=== PATIENT | female | born 1935 | race Caucasian/White ===

== ENCOUNTER 2016-06-13 09:16 | Emergency (ER) | payer MEDICARE ==
[~2016-06-13] VITALS: Ht 157.5 cm; Wt 55.9 kg
[~2016-06-13 09:16] MED LIST: AMLO-39 PO; ASPI-653 PO; ESTR10TA VG; MULT-1007 PO; PRA20 PO; calcium PO
[2016-06-13 09:20] VITALS: BP 170/88; PULSE 79; RESP 18; O2SAT 96
--- NOTE | 2016-06-13 09:30 | ED.REPORT ---
HPI-Abd Pain F 40 and Over Date of Service Jun 13, 2016 ED Provider: Bertin Fernandez MD 81 year old female with a history of diverticulitis and GERD presents to the ER accompanied by her complaining of six days of LLQ abdominal pain, now radiating medially and into her uterus. Associated symptoms include nausea, chills, and diaphoresis this morning. Patient denies dysuria, hematuria, fever, constipation, diarrhea, and hematochezia. She also reports that there is a "lump " in the left lower quadrant. History of similar RLQ pain in December 2015, at which time her primary care provider ordered an abdominal CT that came back with negative results. Nursing Notes Stated Complaint: ABDOMINAL PAIN Chief Complaint: Female Abdominal Pain Nursing Notes Reviewed: Yes Allergies: Coded Allergies: Sulfa (Sulfonamide Antibiotics) (Verified Allergy, Unknown, 08/15/13) Scheduled ([calcium ]) 1,500 MG PO TID AmLODIPine-Expunged Drug, Do Not Renew! (AmLODIPine-Expunged Drug, Do Not Renew! ) 5 Mg Tablet 10 MG PO QPM HOLD FOR SBP<[] OR HR<[] Aspirin-Expunged Drug, Do Not Renew! (Lo-Dose Aspirin-Expunged Drug, Do Not Renew!) 81 Mg Tablet. 81 MG PO DAILY Ciprofloxacin (Ciprofloxacin) 500 Mg Tablet 500 MG PO BID Estradiol-Expunged Drug, Do Not Renew! (Vagifem-Expunged Drug, Do Not Renew!) 10 Mcg Tablet 10 MCG VG 3XW Metronidazole (Flagyl) 500 Mg Tablet 500 MG PO Q8H Multivitamin (Multi-Vitamin Daily) 1 Each Tablet 1 EACH PO DAILY Pravastatin-Expunged Drug, Do Not Renew! (Pravachol-Expunged Drug, Do Not Renew! ) 20 Mg Tab 20 MG PO HS General Time Seen by MD: 09:27 Chief Complaint Abdominal pain Hx Obtained From: Patient Arrived By: Walk-in Sudden in Onset?: No Onset Occurred: 6 days ago Symptom Duration: Since onset Location: : LLQ Quality: Painful Severity: Current: Moderate Severity: Maximum: Moderate Associated with: Reports: Chills, Nausea, Denies: Chest pain, Diarrhea, Dysuria, Fever, Hematemesis, Hematochezia, Hematuria, Vomiting Similar Sx Previous: Yes Past Medical History Past Medical History Diverticulitis Reports: Cancer (Breast), GERD, Hypertension Past Surgical History Mastectomy Reports: Tonsillectomy Smoking History Unknown if Ever Smoker Social History Other Social History: Good social support, Ambulatory Status Independent Review of Systems Constitutional: Reports: Chills, Denies: Fever Respiratory: Denies: Non-productive cough, Shortness of breath Cardiovascular: Denies: Chest pain GI: Reports: Abdominal pain, Nausea, Denies: Bloody/tarry stool, Constipation, Diarrhea, Hematemesis, Hematochezia , Vomiting Female: Denies: Dysuria, Flank pain, Hematuria, Urinary frequency, Urinary urgency Complete sys rev & neg: except as marked. Physical Exam Vital Signs Vital Signs (First) Date Time Temp Pulse Resp B/P Pulse Ox O2 Delivery O2 Flow Rate FiO2 06/13/16 09:20 36.1 79 18 170/88 96 Room Air Initial VS: Reviewed Head / Eyes: Atraumatic, Normocephalic Neck: Supple, Non-tender, Full range of motion Extremities: Vascular intact, Neuro intact, No swelling, No tenderness Skin: Warm, Dry, No cyanosis Neurologic: Alert, Oriented, Nonfocal General/Constitutional: Awake, Alert, Well developed, Well nourished Respiratory / Chest: Breath sounds NL, Breath sounds = bilat, No respiratory distress, No rales, No rhonchi, No wheezing, No stridor Cardiovascular: Heart rate NL, Regular rhythm, Heart sounds NL, Peripheral circulation NL Abdomen: Soft, No guarding, No rebound, No distention, No palpable mass Back: Inspection NL, Non-tender, No CVA tenderness Interpretation & Diagnostics Lab Results Interpretation Result Diagram: 06/13/16 1020 06/13/16 1020 Test 06/13/16 10:20 White Blood Count 5.2th/mm3 (3.8-10.1) Red Blood Count 4.80mil/mm3 (3.90-5.20) Hemoglobin 14.4g/dL (12.0-15.6) Hematocrit 41.5% (35.0-46.0) Mean Corpuscular Volume 86.5fL (81-100) Mean Corpuscular Hemoglobin 30.0pg (27.0-35.0) Mean Corpuscular Hemoglobin Concent 34.7% (32.0-37.0) Red Cell Distribution Width 12.5% (12.3-15.4) Platelet Count 239bil/L (150-400) Neutrophils (%) (Auto) 66.1% (40-74) Lymphocytes (%) (Auto) 23.1% (14-46) Monocytes (%) (Auto) 7.9% (4-12) Eosinophils (%) (Auto) 1.9% (0-5) Basophils (%) (Auto) 0.6% (0-3) Urine Color Yellow (YELLOW) Urine Appearance Clear (CLEAR,HAZY) Urine pH 7.5 (5.0-8.0) Urine Specific Ismay 1.015 (1.003-1.035) Urine Protein Negativemg/dL (NEG,TRACE) Urine Glucose (UA) Negativemg/dL (NEGATIVE) Urine Ketones Negativemg/dL (NEGATIVE) Urine Occult Blood Large (NEGATIVE) Urine Nitrite Negative (NEGATIVE) Urine Bilirubin Negative (NEGATIVE) Urine Urobilinogen Normalmg/dL (NORMAL) Urine Leukocyte Esterase Negative (NEGATIVE) Urine RBC 11-50/hpf (0-2) Urine WBC 0-5/hpf (0-5) Urine Epithelial Cells Few/hpf (NONE-MOD) Urine Crystals None seen (NONE SEEN) Urine Bacteria Few/hpf (NONE-FEW) Urine Hyaline Casts None/lpf (NONE) Urine Granular Casts None seen (NONE SEEN) Urine Waxy Casts None seen (NONE SEEN) Urine Red Blood Cell Casts None seen (NONE SEEN) Urine White Blood Cell Casts None seen (NONE SEEN) Urine Mucus None seen (None Seen) Urine Trichomonas None seen (NONE SEEN) Urine Yeast None (NONE SEEN) Urinalysis Comment None Urine Culture Reflexed Not indicated Sodium Level 135mEq/L (134-144) Potassium Level 3.4mEq/L (3.5-5.2) Chloride Level 92mEq/L (97-108) Carbon Dioxide Level 27mmol/L (18-29) Blood Urea Nitrogen 17mg/dL (8-27) Creatinine 0.72mg/dL (0.57-1.00) Estimat Glomerular Filtration Rate 112mL/min (>59) Glucose Level 115mg/dL (60-99) Calcium Level 10.2mg/dL (8.5-10.1) Magnesium Level 1.7mg/dL (1.6-2.6) Total Bilirubin 0.7mg/dL (0.0-1.2) Aspartate Amino Transf (AST/SGOT) 24U/L (0-50) Alanine Aminotransferase (ALT/SGPT) 17U/L (0-32) Alkaline Phosphatase 65U/L (25-165) Total Protein 7.6g/dL (6.4-8.4) Albumin 4.7g/dL (3.4-5.0) Lipase 28U/L (13-60) Hold Mata Top Tube Received (Received) CT Abd / Pelvis Interpretation IMPRESSION: 1. Extensive colonic diverticulosis without convincing findings of diverticulitis. However mild wall thickening of the sigmoid colon is present without surrounding inflammation. This could potentially represent very early diverticulitis, in the correct clinical setting. 2. No abscess or bowel obstruction. 3. Intrahepatic and extrahepatic biliary dilatation is similar to prior exams. If the patient's liver function tests are persistently elevated and/or increasing, please consider MRCP for further evaluation. 4. Prominence of the urinary bladder wall may be related to incomplete distention. Please correlate clinically to exclude cystitis. Additional findings: -Small hiatal hernia. -Duodenal diverticula. -Osteopenia and degenerative changes of the imaged spine and pelvis without acute fracture. -Coronary and aortic atherosclerosis. Dictated by: Ferdinand Rowe M.D. on 06/13/2016 at 10:48 Approved by: Ferdinand Rowe M.D. on 06/13/2016 at 10:58 Study type: Abdominal CT IV contrast, Abdom CT oral contrast Interpretation / Wet Read by: Interpret - Radiologist Re-Eval/Medical Decision Med Decision/Clinical Course 81-year-old female history of diverticulitis presenting complaining of lower quadrant pain. Vital signs stable. Labs are stable. CT shows possible early diverticulitis with no perforation or abscess. We will treat with Cipro Flagyl 14 days. Recommend follow-up with primary doctor 1-2 days. Return precautions given regarding any new or worsening abdominal pain, fevers chills, nausea vomiting, any other new or worsening symptoms. Source of Hx: Old records Re-Evaluation/Progress : Time of Eval: 12:20 Re-Evaluation/Progress Note: Discussed lab and imaging results and plan to discharge. Patient is amenable to the plan. Return precautions given. All other questions addressed. Counseled Regarding: Diagnosis, Lab results, Need for follow-up, When/why to return to ED Discharge & Departure Primary Impression: Diverticulitis Disposition: Home Discharge Condition All VS Reviewed: Yes Condition: Stable Patient Instructions: Diverticulitis (DC) Additional Instructions: Your CT revealed possible early diverticulitis. Take the prescribed Ciprofloxacin and Flagyl as directed. It is important that you complete the entire course of both of these antibiotic medications, even if you start to feel better. Call your primary care doctor to arrange a follow-up appointment for 1-2 days from now. Return to the ER if you develop new or worsening pain, fever, chills, nausea, vomiting, blood in your stool or vomit, or any other concerning symptoms. Referrals: Jordan Palacios MD (PCP) Jose Attestation Portions of this note were transcribed by Lm Barney. I, Dr. Fernandez, personally performed the history, physical exam and medical decision-making; I reviewed and confirmed the accuracy of the information in the transcribed note. Signed by: Jose Arndt, 06/13/2016 at 12:22 copies to: Jordan Palacios MD, Ben M MD Jun 13, 2016 09:30 LM BARNEY Jun 13, 2016 09:34
[2016-06-13] MEDS ORDERED: Ondansetron 2 mg/mL 2 mL Inj IVPUSH PRN (10:05)
[2016-06-13 10:24] LABS: BASOPHILS % (AUTO) 0.6 % (0-3); EOSINOPHILS % (AUTO) 1.9 % (0-5); MONOCYTES % (AUTO) 7.9 % (4-12); Mean Corpuscular Volume 86.5 fL (81-100); NEUTROPHILS % (AUTO) 66.1 % (40-74); Platelet Count 239 bil/L (150-400)
[2016-06-13 10:41] LABS: APPEARANCE,URINE CLEAR (CLEAR,HAZY); COLOR,URINE YELLOW (YELLOW); OCCULT BLOOD,URINE LARGE (NEGATIVE); PH,URINE 7.5 (5.0-8.0); UROBILINOGEN,URINE NORMAL (NORMAL)
[2016-06-13 11:00] LABS: Magnesium 1.7 mg/dL (1.6-2.6)
--- NOTE | 2016-06-13 12:00 | DRSVH ---
PROCEDURE: CT ABDOMEN AND PELVIS WITH CONTRAST ([id number]) INDICATIONS: LLQ pain, L flank pain h/o diverticulitis TECHNIQUE: After the administration of oral and intravenous contrast, 5 mm thick sections acquired from the diap hragms to the symphysis. 5 mm thick coronal and sagittal reformats were performed. For radiation do se reduction, the following was used: automated exposure control, adjustment of mA and/or kV accordi ng to patient size. COMPARISON: [facility], CT, CT ABD PELVIS W CON, 01/12/2016, 15:09. [facility], CT, ABD/PELVIS W&WO CON (PNL), 09/09/2008, 10:20. FINDINGS: Image quality: Diagnostic. ABDOMEN: Lung bases: Included lung bases are clear. The heart is normal in size without a pericardial effusio n. Postoperative changes related to a right mastectomy are present. Coronary artery atherosclerosis is noted. Solid organs: The liver is normal in size. There phrygian cap of the gallbladder is incidentally not ed. There is mild intrahepatic and moderate extrahepatic biliary dilatation. The common bile duct m easures up to approximately 9 mm in diameter, which is unchanged since the previous exam and slightly larger than the exam from 2008. Probably is chronic in nature. The spleen, adrenals, and pancreas are within normal limits. Small duodenal diverticula are present involving the 1st and 2nd portions. Peritoneum and bowel: There is a small hiatal hernia. Proximal duodenal diverticula are present. Th e small bowel loops are nondilated. There is no bowel obstruction. The appendix is enlarged. Howev er, there is no periappendiceal inflammation and the size and appearance of the appendix is unchanged since the prior study. A large amount of residual stool is seen within the colon. There is extensi ve distal colonic diverticulosis. Mild focal prominence of the wall of the sigmoid colon is evident without definite surrounding inflammation. No free fluid, likely a fluid collection or free air is e vident. Nodes and vessels: No retroperitoneal or mesenteric adenopathy. Aorta and inferior vena cava are no rmal in caliber. Prominent atherosclerosis of the abdominal aorta is present. Bones: The bone mineralization is diffusely decreased. Moderate to severe multilevel degenerative ch anges of the lumbar spine are primarily evident involving the lower lumbar facet joints. No suspicio us osseous lesions or acute fractures are evident. PELVIS: Genitourinary: Mild prominence of the wall of the urinary bladder is present. The uterus and ovaries do not appear to be enlarged. Miscellaneous: No free fluid, loculated fluid collection or free air is evident. Bones: No suspicious bony lesions. No acute pelvic fractures are identified. Bone mineralization i s diffusely decreased. There are severe degenerative changes of the pubis symphysis. IMPRESSION: 1. Extensive colonic diverticulosis without convincing findings of diverticulitis. However mild wall thickening of the sigmoid colon is present without surrounding inflammation. This could potentially represent very early diverticulitis, in the correct clinical setting. 2. No abscess or bowel obstruction. 3. Intrahepatic and extrahepatic biliary dilatation is similar to prior exams. If the patient's kiara er function tests are persistently elevated and/or increasing, please consider MRCP for further evalu ation. 4. Prominence of the urinary bladder wall may be related to incomplete distention. Please correlate clinically to exclude cystitis. Additional findings: -Small hiatal hernia. -Duodenal diverticula. -Osteopenia and degenerative changes of the imaged spine and pelvis without acute fracture. -Coronary and aortic atherosclerosis. Dictated by: Ferdinand Rowe M.D. on 06/13/2016 at 10:48 Approved by: Ferdinand Rowe M.D. on 06/13/2016 at 10:58
[2016-06-13] MEDS ORDERED: METR500T PO (12:16)
[2016-06-13] MEDS ORDERED: CIPR-198 PO (12:16)
[2016-06-13 12:42] VITALS: BP 150/90; PULSE 72; RESP 16; O2SAT 95
== END 2016-06-13 12:22 | disposition home or self-care (01) ==
LOC: SED 09:16
DX: K57.92 Diverticulitis of intestine, part unspecified, without perforation or abscess without bleeding (principal); I10 Essential (primary) hypertension; K21.9 Gastro-esophageal reflux disease without esophagitis; Z88.2 Allergy status to sulfonamides
CPT/HCPCS: 36415; 74177; 80053; 81000; 83690; 83735; 85025; 99284; Q9967